=== PATIENT | male | born 1960 ===

== ENCOUNTER 2016-11-03 19:11 | Emergency (ER) | payer MEDICARE ==
[2016-11-03 19:13] VITALS: RESP 18; O2SAT 100; BMI 25.1
[2016-11-03] MEDS ORDERED: Sodium Chloride 0.9% 500 ML IV STA (19:29)
--- NOTE | 2016-11-03 19:31 | ED PDOC ---
Arrival/HPI - General Chief Complaint: Dizziness/Lightheaded Time Seen by Provider: 11/03/16 19:12 - History of Present Illness Narrative History of Present Illness (Text): 11/03/16 19:31 Patient is a 56 y/o M with hx of DM, HTN, hyperlipidemia and CAD with stents, presenting with complaint of dizziness since Monday (4 days). Patient reports that the room is spinning and he cant walk due to dizziness. He reports symptoms worse with movement and turning of his head. Denies chest pain, shortness of breath, head trauma, weakness, numbness, tingling PMD: Dr. Us Past Medical History - Infectious Disease Hx of Infectious Diseases: None - Tetanus Immunization Tetanus Immunization: Unknown - Cardiac Hx [place]: Yes Hx Hypertension: Yes - Pulmonary Hx Respiratory Disorders: No - Neurological Hx Neurological Disorder: No Other/Comment: history [place] disease - HEENT Hx HEENT Disorder: No - Renal Hx Renal Disorder: No - Endocrine/Metabolic Hx Diabetes Mellitus Type 2: Yes (newly dx) - Hematological/Oncological Hx Blood Transfusions: No Hx Blood Transfusion Reaction: No - Integumentary Hx Dermatological Disorder: No - Musculoskeletal/Rheumatological Hx Musculoskeletal Disorders: Yes - Gastrointestinal Hx Gastrointestinal Ulcer: Yes - Genitourinary/Gynecological Hx Genitourinary Disorders: Yes - Psychiatric Hx Emotional Abuse: No Hx Physical Abuse: No Hx Substance Use: No - Surgical History Hx Cardiac Catheterization: Yes - Anesthesia Hx Anesthesia Reactions: No Hx Malignant Hyperthermia: No - Suicidal Assessment Feels Threatened In Home Enviroment: No Family/Social History Family/Social History: No Known Family HX Smoking Status: Heavy Smoker > 10 Cigarettes Daily Hx Alcohol Use: No Hx Substance Use: No Hx Substance Use Treatment: No Allergies/Home Meds Allergies/Adverse Reactions: Allergies No Known Allergies Allergy (Verified 11/03/16 19:24) Home Medications: Home Meds Medication Instructions Recorded Confirmed Atorvastatin [Lipitor] 40 mg PO DAILY 11/09/11 11/03/16 Lisinopril 5 mg PO DAILY 02/21/14 11/03/16 Aspirin [Adult Low Dose Aspirin EC] 81 mg PO DAILY 06/01/15 11/03/16 Metoprolol Succinate [Toprol XL] 25 mg PO BID 06/01/15 11/03/16 metFORMIN [glucOPHAGE] 500 mg PO BID 06/01/15 11/03/16 Clopidogrel [Plavix] 75 mg PO DAILY 05/27/16 11/03/16 Review of Systems - Physician Review All systems were reviewed & negative as marked: Yes - Review of Systems Constitutional: absent: Fatigue, Weight Change, Fevers, Night Sweats Eyes: absent: Vision Changes ENT: absent: Hearing Changes (baseline tinnitus from occupational injury) Respiratory: absent: SOB, Cough, Sputum, Wheezing Cardiovascular: absent: Chest Pain, Palpitations, Edema, Calf Pain, NICHOLE, Orthopnea, Syncope Gastrointestinal: Nausea. absent: Abdominal Pain, Constipation, Diarrhea, Vomiting Genitourinary Male: absent: Dysuria Musculoskeletal: absent: Arthralgias Neurological: Dizziness. absent: Headache, Focal Weakness, Speech Changes, Facial Droop, Seizure Physical Exam Vital Signs Temp Pulse Resp BP Pulse Ox 11/03/16 21:17 98.4 F 54 L 18 122/85 100 11/03/16 19:12 98.3 F 66 18 144/74 100 Temperature: Afebrile Blood Pressure: Normal Pulse: Regular Respiratory Rate: Normal Appearance: Positive for: Well-Appearing, Non-Toxic, Comfortable Pain Distress: None Mental Status: Positive for: Alert and Oriented X 3 - Systems Exam Head: Present: Atraumatic, Normocephalic Pupils: Present: PERRL Extroacular Muscles: Present: EOMI, Other (horizontal nystagmus) Conjunctiva: Present: Normal Ears: Present: NORMAL TM Mouth: Present: Moist Mucous Membranes Neck: Present: Normal Range of Motion Respiratory/Chest: Present: Clear to Auscultation Cardiovascular: Present: Regular Rate and Rhythm, Normal S1, S2. No: Murmurs Abdomen: No: Tenderness, Distention, Rebound, Guarding Back: Present: Normal Inspection Upper Extremity: Present: Normal Inspection, Normal ROM Lower Extremity: Present: Normal Inspection, Normal ROM Neurological: Present: GCS=15, CN II-XII Intact, Speech Normal, Motor Func Grossly Intact. No: Gait Normal (cannot ambulate due to dizziness) Psychiatric: Present: Alert, Oriented x 3 Medical Decision Making ED Course and Treatment: 11/03/16 19:56 Patient presenting with dizziness -ekg -labs -ct head -nigel hunter Chart review: 05/2016 stress: abnormal myocardial perfusion study, fixed and inferolateral defect, mild LV dysfunction with diffuse hypokinesis. 11/03/16 20:26 EKG shows NSR at 56bpm with normal intervals and non-specific st changes, unchanged from prior on 10/02/14 11/03/16 20:52 CT head negative. Labs, including electrolytes, hemoglobin and trop grossly normal. On reevaluation, patient is ambulating around the ED without issue and is tolerating po. Symptoms appear more consistent with peripheral vertigo. Patient was given detailed return instructions and he reports that he can follow -up with his PMD. He will return with any worsening symptoms. - Lab Interpretations Lab Results: 11/03/16 19:45 11/03/16 19:45 Lab Results 11/03/16 19:45: Sodium 142, Potassium 3.9, Chloride 102, Carbon Dioxide 30, Anion Gap 14, BUN 11, Creatinine 0.6, Est GFR ( Amer) > 60, Est GFR (Non- Af Amer) > 60, Random Glucose 130 H, Calcium 9.8, Phosphorus 3.4, Magnesium 1.9 , Total Bilirubin 0.8, AST 23, ALT 25, Alkaline Phosphatase 105, Troponin I < 0.01, Total Protein 7.6, Albumin 4.6, Globulin 3.1, Albumin/Globulin Ratio 1.5 11/03/16 19:45: WBC 5.5 D, RBC 5.35, Hgb 16.2, Hct 46.3, MCV 86.5, MCH 30.3, MCHC 35.0, RDW 13.8, Plt Count 213, MPV 9.5, Gran % 64.0, Lymph % (Auto) 27.9, [place] % (Auto) 6.4 H, Eos % (Auto) 1.7, Baso % (Auto) 0.0, Gran # 3.49, Lymph # 1.5, [place] # 0.4, Eos # 0.1, Baso # 0.00 - RAD Interpretation Radiology Orders: 11/03/16 19:29 HEAD W/O CONTRAST [CT] Stat - Medication Orders Current Medication Orders: Discontinued Medications Sodium Chloride (Sodium Chloride 0.9%) 500 mls @ 999 mls/hr IV .Q31M STA Stop: 11/03/16 19:59 Last Admin: 11/03/16 19:48 Dose: 999 mls/hr Meclizine HCl (Antivert) 50 mg PO STAT STA Stop: 11/03/16 19:30 Last Admin: 11/03/16 20:11 Dose: 50 mg Ondansetron HCl (Zofran Inj) 4 mg IVP STAT STA Stop: 11/03/16 19:30 Last Admin: 11/03/16 20:11 Dose: 4 mg Disposition/Present on Arrival - Present on Arrival Any Indicators Present on Arrival: No History of DVT/PE: No History of Uncontrolled Diabetes: Yes Urinary Catheter: No History of Decub. Ulcer: No History Surgical Site Infection Following: None - Disposition Have Diagnosis and Disposition been Completed?: Yes Diagnosis: Vertigo Disposition: HOME/ ROUTINE Disposition Time: 21:28 Patient Plan: Discharge Condition: GOOD Discharge Instructions (ExitCare): Vertigo (ED) Additional Instructions: Take meclizine for dizziness. Return to ED immediately with any worsening symptoms. Follow-up with PMD within 2 days. Prescriptions: Meclizine [Meclizine*] 25 mg PO Q6 PRN #30 tab PRN Reason: Dizziness Referrals: Phillip Kruse MD [Primary Care Provider] - Follow up with primary Forms: [employer] ([place]i)
[2016-11-03 19:59] LABS: EOS # 0.1 (0.0-0.7); EOS % 1.7 % (1.5-5.0); GRAN # 3.49 (1.4-6.5); HEMATOCRIT 46.3 % (42.0-52.0); LYMPH # 1.5 (1.2-3.4); LYMPH % 27.9 % (22.0-35.0); MEAN CELL VOLUME 86.5 fl (80.0-105.0); MEAN CORPUSCULAR HEMOGLOBIN 30.3 pg (25.0-35.0); MEAN PLATELET VOLUME 9.5 fl (7.0-11.0); MONO # 0.4 (0.1-0.6); MONO % 6.4 % (1.0-6.0); RED CELL DISTRIBUTION WIDTH 13.8 % (11.5-14.5); WHITE BLOOD COUNT 5.5 10^3/ul (4.5-11.0)
[2016-11-03 20:09] LABS: ALKALINE PHOSPHATASE 105 U/L (38-133); BILIRUBIN,TOTAL 0.8 mg/dL (0.2-1.3); BLOOD UREA NITROGEN 11 mg/dL (7-21); CALCIUM 9.8 mg/dL (8.4-10.5); CARBON DIOXIDE 30 mmol/L (21-33); CHLORIDE 102 mmol/L (95-110); GFR AFRICAN-AMERICAN > 60; GLUCOSE,RANDOM 130 mg/dL (70-110); MAGNESIUM 1.9 mg/dL (1.7-2.2); PHOSPHOROUS 3.4 mg/dL (2.5-4.5); POTASSIUM 3.9 mmol/L (3.6-5.0); SODIUM 142 mmol/L (132-148); TOTAL PROTEIN 7.6 g/dL (5.8-8.3)
[2016-11-03 20:16] LABS: ALB/GLOB RATIO 1.5 (1.1-1.8); AST/SGOT 23 U/L (15-59)
[2016-11-03 20:38] LABS: TROPONIN I < 0.01 ng/mL
--- NOTE | 2016-11-03 20:44 | CT ---
EXAM: CT Head Without Intravenous Contrast EXAM DATE/TIME: 11/03/2016 7:29 PM CLINICAL HISTORY: 56 years old, male; Signs and symptoms; Dizziness TECHNIQUE: Axial computed tomography images of the head/brain without intravenous contrast. All CT scans at this facility use one or more dose reduction techniques, viz.: automated exposure control; ma/kV adjustment per patient size (including targeted exams where dose is matched to indication; i.e. head); or iterative reconstruction technique. COMPARISON: There are no prior studies for comparison. FINDINGS: Brain: Ventricles are normal in size and configuration. There is no midline shift. There are no intra-axial or extra-axial mass lesions or areas of hemorrhage. There are no abnormal fluid collections. Ellis-white differentiation is maintained. Ventricles: See above. Bones: Cranial vault is intact. Soft tissues: unremarkable Sinuses: There is no acute sinusitis. There is a retention cyst/polyp in the left maxillary sinus. Ears and mastoids: Middle ears and mastoids are unremarkable Orbits: Orbital contents are unremarkable. IMPRESSION: No acute intracranial abnormality
[2016-11-03 20:46] LABS: ALT/SGPT 25 U/L (7-56)
[2016-11-03 21:17] VITALS: BP 122/85; PULSE 54; TEMP 98.4
--- NOTE | 2016-11-04 15:40 | CARD ---
APPROVED REPORT EKG Measurement Heart [id number] <Conclusion> Sinus bradycardia Inferior infarct, age undetermined Abnormal ECG
== END 2016-11-03 21:45 | disposition home or self-care (01) ==
LOC: ED 19:11
DX: R42 Dizziness and giddiness (principal); I25.10 Atherosclerotic heart disease of native coronary artery without angina pectoris; I10 Essential (primary) hypertension; E11.9 Type 2 diabetes mellitus without complications; E78.5 Hyperlipidemia, unspecified; Z95.5 Presence of coronary angioplasty implant and graft; F17.210 Nicotine dependence, cigarettes, uncomplicated
CPT/HCPCS: 70450; 80053; 83735; 84100; 84484; 85025; 93005; 96374; 99285; J2405; J7040

== ENCOUNTER 2017-08-19 10:43 | Emergency (ER) | payer MEDICARE ==
[2017-08-19 10:46] VITALS: BMI 26.9
[2017-08-19 11:05] VITALS: TEMP 98.4
--- NOTE | 2017-08-19 11:33 | ED PDOC ---
Arrival/HPI - General Chief Complaint: Cough, Cold, Congestion Time Seen by Provider: 08/19/17 11:09 Historian: Patient - History of Present Illness Narrative History of Present Illness (Text): 08/19/17 11:30 57yr old male with hx of DM presents today with URI symptoms since yesterday. pt states yesterday he developed nasal congestion, sore throat, and dry cough. pt states he has been having subjective fevers at home. no medications have been taken at home. pt states today the cough is extremely dry and he has been having pain with cough.pt states he has been having chest pain and dizziness. pt with hx of DM , hx of [place] and hx of abnormal ekg. Despite triage history, the patient does NOT have and DID NOT have nausea vomiting or diarrhea. pt denies abdominal pain. no sick contacts. denies seasonal allergies. no other complaints. Time/Duration: Other (1 day) Past Medical History - Provider Review Nursing Documentation Reviewed: Yes - Travel History Have you recently traveled outside [place] w/in the past 3 mons?: No - Infectious Disease Hx of Infectious Diseases: None - Tetanus Immunization Tetanus Immunization: Unknown - Cardiac Hx [place]: Yes Hx Hypertension: Yes Other/Comment: 1st OH 04/2010 with stenting. 2nd [place] 02/24/2014 with stenting. ~ stents as per pt. - Pulmonary Hx Respiratory Disorders: No - Neurological Hx Neurological Disorder: No Other/Comment: history [place] disease - HEENT Hx HEENT Disorder: No - Renal Hx Renal Disorder: No - Endocrine/Metabolic Hx Diabetes Mellitus Type 2: Yes (newly dx) - Hematological/Oncological Hx Blood Transfusions: No Hx Blood Transfusion Reaction: No - Integumentary Hx Dermatological Disorder: No - Musculoskeletal/Rheumatological Hx Musculoskeletal Disorders: Yes - Gastrointestinal Hx Gastrointestinal Ulcer: Yes - Genitourinary/Gynecological Hx Genitourinary Disorders: Yes - Psychiatric Hx Emotional Abuse: No Hx Physical Abuse: No Hx Substance Use: No - Surgical History Hx Cardiac Catheterization: Yes - Anesthesia Hx Anesthesia: No Hx Anesthesia Reactions: No Hx Malignant Hyperthermia: No - Suicidal Assessment Feels Threatened In Home Enviroment: No Family/Social History - Physician Review Nursing Documentation Reviewed: Yes Family/Social History: Unknown Family HX Smoking Status: Heavy Smoker > 10 Cigarettes Daily Hx Alcohol Use: No Hx Substance Use: No Hx Substance Use Treatment: No Allergies/Home Meds Allergies/Adverse Reactions: Allergies No Known Allergies Allergy (Verified 08/19/17 10:57) Home Medications: Home Meds Medication Instructions Recorded Confirmed Atorvastatin [Lipitor] 40 mg PO DAILY 11/09/11 08/19/17 Lisinopril 5 mg PO DAILY 02/21/14 08/19/17 Aspirin [Adult Low Dose Aspirin EC] 81 mg PO DAILY 06/01/15 08/19/17 Metoprolol Succinate [Toprol XL] 25 mg PO BID 06/01/15 08/19/17 metFORMIN [glucOPHAGE] 500 mg PO BID 06/01/15 08/19/17 Clopidogrel [Plavix] 75 mg PO DAILY 05/27/16 08/19/17 Review of Systems - Review of Systems Constitutional: Fevers. absent: Fatigue ENT: Sore Throat, Rhinorrhea, Sinus Congestion Respiratory: Cough. absent: SOB, Sputum, Wheezing Cardiovascular: Chest Pain (only with cough). absent: Palpitations Gastrointestinal: absent: Abdominal Pain, Constipation, Diarrhea, Nausea, Vomiting Genitourinary Male: absent: Dysuria, Frequency, Hematuria Musculoskeletal: absent: Arthralgias, Back Pain, Neck Pain Skin: absent: Rash, Pruritis Neurological: Dizziness. absent: Headache Psychiatric: absent: Anxiety, Depression Physical Exam Vital Signs Reviewed: Yes Vital Signs Temp Pulse Resp BP Pulse Ox 08/19/17 10:46 98.4 F 93 H 20 127/77 97 Temperature: Afebrile Blood Pressure: Normal Pulse: Regular Respiratory Rate: Normal Appearance: Positive for: Well-Appearing, Non-Toxic, Comfortable Pain Distress: None Mental Status: Positive for: Alert and Oriented X 3 - Systems Exam Head: Present: Atraumatic Mouth: Present: Moist Mucous Membranes Neck: Present: Normal Range of Motion Respiratory/Chest: Present: Clear to Auscultation, Good Air Exchange. No: Respiratory Distress, Accessory Muscle Use, Wheezes, Decreased Breath Sounds, Retracting, Rhonchi, Tachypneic Cardiovascular: Present: Regular Rate and Rhythm, Normal S1, S2. No: Murmurs Abdomen: No: Tenderness, Distention, Peritoneal Signs, Rebound, Guarding Back: Present: Normal Inspection. No: Midline Tenderness, Paraspinal Tenderness Upper Extremity: Present: Normal ROM Lower Extremity: Present: Normal ROM Neurological: Present: GCS=15, Speech Normal Skin: Present: Warm, Dry, Normal Color. No: Rashes Psychiatric: Present: Alert, Oriented x 3 Medical Decision Making ED Course and Treatment: 08/19/17 11:36 Patient is nontoxic well-appearing in no distress. Vital signs are stable. cxr; FINDINGS: LUNGS: No active pulmonary disease. PLEURA: No significant pleural effusion identified. No pneumothorax apparent. CARDIOVASCULAR: Normal. OSSEOUS STRUCTURES: No significant abnormalities. VISUALIZED UPPER ABDOMEN: Normal. OTHER FINDINGS: None. IMPRESSION: No active disease. EKG: inverted p waves, NO ST elevations, 86b/m. changed from previous. reviewed by dr. alcantar CBC within normal limits CMP within normal limits Troponin within normal limits Patient with significant cardiac history complaining of dizziness chest pain and occasional shortness of breath with cough. Patient refused admission to the hospital for further evaluation/workup of chest pain. Patient has been advised to not leave the emergency room but has decided to go AGAINST MEDICAL ADVICE. The patient possesses capacity to make decisions and has voiced understanding to all my warnings of potential worsening of the condition for which medical care was sought. I have discussed all known and potential risks and consequences to the patient leaving AGAINST MEDICAL ADVICE. Patient is leaving against medical advise. AMA form signed. witness by JANELL Lay all aspects of this case were discussed the attending of record. . Impression: chest pain, cough Return if you wish to continue your care Claritin; 1 tablet daily Zithromax; take as directed FLonase; 2 sprays each nostril once daily. Increase fluids Followup with primary care physician the next 2 days Return if symptoms worsen persist or if new symptoms develop: chest pain, shortness of breath, dizziness, weakness. - Lab Interpretations Lab Results: 08/19/17 13:44 08/19/17 14:38 Lab Results 08/19/17 14:38: Sodium 143, Potassium 4.0, Chloride 104, Carbon Dioxide 28, Anion Gap 15, BUN 10, Creatinine 0.7 L, Est GFR ( Amer) > 60, Est GFR ( Non-Af Amer) > 60, Random Glucose 93, Calcium 9.1, Total Bilirubin 0.8, AST 16 L , ALT 22, Alkaline Phosphatase 90, Lactate Dehydrogenase 338, Total Creatine Kinase 42, Troponin I < 0.01, Total Protein 6.9, Albumin 4.2, Globulin 2.7, Albumin/Globulin Ratio 1.5 08/19/17 13:44: WBC 7.5 D, RBC 5.09, Hgb 15.8, Hct 44.4, MCV 87.2, MCH 31.0, MCHC 35.6, RDW 13.3, Plt Count 165, MPV 9.5, Gran % 70.3 H, Lymph % (Auto) 19.8 L, [place] % (Auto) 8.2 H, Eos % (Auto) 1.6, Baso % (Auto) 0.1, Gran # 5.28, Lymph # (Auto) 1.5, [place] # (Auto) 0.6, Eos # (Auto) 0.1, Baso # (Auto) 0.01 08/19/17 11:17: POC Glucose (mg/dL) 155 H - RAD Interpretation Radiology Orders: 08/19/17 11:26 CHEST TWO VIEWS (PA/LAT) [RAD] Stat Disposition/Present on Arrival - Present on Arrival Any Indicators Present on Arrival: Yes History of DVT/PE: No History of Uncontrolled Diabetes: Yes Urinary Catheter: No History of Decub. Ulcer: No History Surgical Site Infection Following: None - Disposition Have Diagnosis and Disposition been Completed?: Yes Diagnosis: Cough, Chest pain Disposition: AGAINST MEDICAL ADVICE Disposition Time: 14:45 Patient Plan: Other (AMA) Patient Problems: Current Active Problems Problem Status Onset Chest pain Acute Cough Acute Condition: FAIR Discharge Instructions (ExitCare): Chest Pain, Cough, Adult (DC), Chest Pain ( ED) Additional Instructions: Return if you wish to continue your care Claritin; 1 tablet daily Zithromax; take as directed FLonase; 2 sprays each nostril once daily. Increase fluids Followup with primary care physician the next 2 days Return if symptoms worsen persist or if new symptoms develop: chest pain, shortness of breath, dizziness, weakness. Prescriptions: Azithromycin [Zithromax] 250 mg PO DAILY #6 tab Fluticasone Nasal [Flonase] 2 spr NS DAILY #1 spr Loratadine [Claritin] 10 mg PO DAILY #30 tab Referrals: Phillip Kruse MD [Primary Care Provider] - Follow up with primary Forms: [employer] ([place]), WORK NOTE
--- NOTE | 2017-08-19 12:22 | RAD ---
HISTORY: cough/ pain with cough COMPARISON: 10/02/2014 TECHNIQUE: Chest PA and lateral FINDINGS: LUNGS: No active pulmonary disease. PLEURA: No significant pleural effusion identified. No pneumothorax apparent. CARDIOVASCULAR: Normal. OSSEOUS STRUCTURES: No significant abnormalities. VISUALIZED UPPER ABDOMEN: Normal. OTHER FINDINGS: None. IMPRESSION: No active disease.
[2017-08-19 13:58] LABS: BASO # 0.01 K/mm3 (0.0-2.0); BASO % 0.1 % (0.0-3.0); EOS # 0.1 (0.0-0.7); EOS % 1.6 % (1.5-5.0); GRAN # 5.28 (1.4-6.5); GRAN % 70.3 % (50.0-68.0); HEMOGLOBIN 15.8 g/dL (14.0-18.0); LYMPH # 1.5 (1.2-3.4); LYMPH % 19.8 % (22.0-35.0); MEAN CELL VOLUME 87.2 fl (80.0-105.0); MEAN CORPUSCULAR HGB CONC 35.6 g/dl (31.0-37.0); MEAN PLATELET VOLUME 9.5 fl (7.0-11.0); MONO # 0.6 (0.1-0.6); MONO % 8.2 % (1.0-6.0); RBC 5.09 10^6/uL (3.5-6.1); RED CELL DISTRIBUTION WIDTH 13.3 % (11.5-14.5); WHITE BLOOD COUNT 7.5 10^3/ul (4.5-11.0)
[2017-08-19 15:00] LABS: ALB/GLOB RATIO 1.5 (1.1-1.8); ALBUMIN 4.2 g/dL (3.0-4.8); ALT/SGPT 22 U/L (7-56); AST/SGOT 16 U/L (17-59); BLOOD UREA NITROGEN 10 mg/dL (7-21); CALCIUM 9.1 mg/dL (8.4-10.5); GFR AFRICAN-AMERICAN > 60; GFR NON-AFRICAN AMERICAN > 60
[2017-08-19 15:12] LABS: TROPONIN I < 0.01 ng/mL
[2017-08-19 16:31] VITALS: BP 130/78; PULSE 89; RESP 18; O2SAT 98
--- NOTE | 2017-08-20 10:27 | CARD ---
APPROVED REPORT EKG Measurement Heart [id number] <Conclusion> Unusual P axis, possible ectopic atrial rhythm Left axis deviation/LAHB NSSTW chnages These findings are new c/w ECG 11/03/16
== END 2017-08-19 16:42 | disposition left against medical advice (07) ==
LOC: ED 10:43
DX: R05 Cough (principal); R07.9 Chest pain, unspecified; E11.9 Type 2 diabetes mellitus without complications; I10 Essential (primary) hypertension; F17.210 Nicotine dependence, cigarettes, uncomplicated